=== PATIENT | female | born 1990 | race Caucasian/White ===

== ENCOUNTER 2017-06-21 19:58 | Emergency (ER) | payer OTHER ==
--- NOTE | 2017-06-21 20:43 | CPEKG ---
Heart Rate: 71 RR Interval: 845 P-R Interval: 156 QRSD Interval: 88 QT Interval: 412 QTC Interval: 448 P [place]: 58 QRS [place]: 90 T Wave [place]: 43 EKG Severity - OTHERWISE NORMAL ECG - EKG Impression: SINUS RHYTHM EKG Impression: BORDERLINE RIGHT AXIS DEVIATION Electronically Signed By: Shar Pierce 21-Jun-2017 22:18:51
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
[2017-06-21 21:19] VITALS: BP 120/72
== END 2017-06-21 21:19 | disposition home or self-care (01) ==
LOC: CED 19:58
DX: F16.90 Hallucinogen use, unspecified, uncomplicated (principal); R40.0 Somnolence; J45.909 Unspecified asthma, uncomplicated